=== PATIENT | male | born 1970 | race Caucasian/White ===

== ENCOUNTER 2016-12-07 07:16 | Day surgery (SDC) | payer SELFPAY ==
[2016-12-07] MEDS ORDERED: Lactated Ringers 1,000 ML IV SCH (08:00)
--- NOTE | 2016-12-07 08:28 | PCM.SN ---
- Free Text/Narrative Note: addendum to H+P: Pt has a small umbilical hernia that we will fix at the time of his lap cholecystectomy. No new sig risks of procedure.
[2016-12-07] MEDS ORDERED: cefOXitin 2 GM in Sodium Chloride 0.9% 100 ML IV ONE (08:30)
[2016-12-07] MEDS ORDERED: fentaNYL 100 MCG/2 ML SDV IV ONE (09:30)
[2016-12-07] MEDS ORDERED: Dexamethasone 4 MG/ML 5 ML MDV IVPUSH ONE (09:30)
[2016-12-07] MEDS ORDERED: Lidocaine 2% 100 MG/5 ML Syringe IVPUSH ONE (09:30)
[2016-12-07] MEDS ORDERED: Ondansetron 4 MG/2 ML SDV IVPUSH ONE (09:30)
[2016-12-07] MEDS ORDERED: HYDROmorphone 2 MG/ML SDV IV ONE (09:30)
[2016-12-07] MEDS ORDERED: Propofol 200 MG/20 ML SDV IV ONE (09:30)
[2016-12-07] MEDS ORDERED: Rocuronium 100 MG/10 ML MDV IV ONE (09:30)
[2016-12-07] MEDS ORDERED: Midazolam 1 MG/ML 2 ML SDV IV ONE (09:30)
[2016-12-07] MEDS ORDERED: Neostigmine Methylsulfate 1 MG/ML 5 ML Syringe IV ONE (09:30)
[2016-12-07] MEDS ORDERED: Bupivacaine 0.5% 30 ML SDV ONE (09:43)
[2016-12-07] MEDS ORDERED: Lidocaine 1% with EPINEPHrine 1:100,000 20 ML MDV ONE (09:43)
--- NOTE | 2016-12-07 10:19 | PCM.OPNOTE ---
- General Post-Op/Procedure Note Date of Surgery/Procedure: 12/07/16 Operative Procedure(s): lap cholecystectomy. umbilical hernia repair Findings: gall bladder and contents critical view obtained small 1 cm umbilical hernia Pre Op Diagnosis: sx gallstones and umbilical hernia Post-Op Diagnosis: Same Anesthesia Technique: General ET tube, Local (10 ml 1% lido with epi/0.5% marcaine) Primary Surgeon: Benja Wood Anesthesia Provider: Medina Santos Pathology: gallbladder and contents. Complications: None Condition: Good Free Text/Narrative:: see dictation
[2016-12-07] MEDS ORDERED: Morphine 2 MG/ML Syringe IVPUSH ONE (10:44)
--- NOTE | 2016-12-07 11:09 | OR ---
DATE OF OPERATION: 12/07/2016 SURGEON: Benja Wood MD PROCEDURE PERFORMED: Laparoscopic cholecystectomy. PREOPERATIVE DIAGNOSIS: Symptomatic cholelithiasis. POSTOPERATIVE DIAGNOSIS: Symptomatic cholelithiasis. INDICATIONS FOR PROCEDURE: This is a 45-year-old white male, who is referred with a history of intermittent right upper quadrant abdominal pain. This has been quite persistent. This has been going on for 6 months. Examination revealed a gallbladder sludge, slightly dilated common bile duct at 5.7 mm; however, his bilirubin was normal as well as his alkaline phosphatase. On the basis of this, he was offered and accepted the laparoscopic cholecystectomy. INTRAOPERATIVE FINDINGS: As follows: 10 mL of 1:1 mixture of 1% lidocaine with epinephrine 0.5% bupivacaine was used. The patient also had a small umbilical hernia that was repaired on closure of the umbilical port, and in addition, critical view was obtained. DESCRIPTION OF OPERATION: After an excellent general anesthetic was administered, the patient was prepped and draped in the usual sterile manner. Local was used to infiltrate around the area of the umbilicus, and a curvilinear incision was made. Blunt dissection was carried out exposing the midline fascia. Two stay sutures were placed on either side of the midline fascia. The midline was then incised. The abdominal cavity was entered. A 10.5 mm [place] trocar was then inserted in the patient's abdomen, which was then insufflated to 15 mmHg using carbon dioxide. The patient was placed in a reverse Trendelenburg position with an airplane to the left. Three 5 mm ports were placed, 1 in midline epigastrium and 2 below the right costal margin at the approximate level of the midclavicular and anterior axillary line. This was done by infiltrating full thickness of the abdominal wall with local anesthetic, making stab incisions and inserting our trocars. The gallbladder was grasped, retracted in a cephalad fashion. Adhesions were taken down using careful blunt dissection. The infundibulum was then grasped as well. It should be noted that the gallbladder appeared to be distended at the start of our dissection. Attempts to aspirate bile were not successful due to the nature of bile. After grasping the infundibulum, cystic duct and cystic artery were dissected free and after obtaining our clinical 270-degree view, two clips were placed proximally on the cystic duct and one distally. This was then transected. The process was repeated for the cystic artery with 2 clips proximal and 1 distal, which was then transected as well. L-hook cautery dissection was used to dissect the gallbladder free from the gallbladder fossa. The specimen was then delivered into the specimen bag and delivered out through the umbilical port. We did have to extend our fascial incision out and through the hernia, which was done easily allowing delivery of the gallbladder. The area was irrigated. Bleeding was controlled with electrocautery. There was some slight oozing in the area as well, not marked, but I did pack a piece of Surgicel into the gallbladder fossa as well. After assuring excellent hemostasis, the trocars were removed under direct visualization. The 5 mm ports were closed with maura. Down at the level of the umbilicus, we dissected through the umbilical hernia, mobilizing and freeing up rather the umbilicus. The defect was then closed with a running 0 Ethibond; 0 Vicryl was used to tack the umbilicus to the anterior abdominal wall. The 2 stay sutures were also tied to each other, and then the skin was closed with maura. Dressing was applied. Needle, sponge, and instrument counts were reported as correct. The patient was taken to recovery room in good condition. /[id number] MARCELO/RC
[2016-12-07] MEDS ORDERED: Acetaminophen/HYDROcodone 325-5 MG Tab PO PRN (11:34)
[2016-12-07 14:08] VITALS: BP 126/68
== END 2016-12-07 13:14 | disposition home or self-care (01) ==
LOC: FB.SDS 07:16
PROVIDERS: ATTEND Surgery
PROC: 0FT44ZZ Resection of Gallbladder, Percutaneous Endoscopic Approach (ICD-10-PCS; principal; 2016-12-07)
DX: K80.12 Calculus of gallbladder with acute and chronic cholecystitis without obstruction (principal); F17.200 Nicotine dependence, unspecified, uncomplicated; Z79.899 Other long term (current) drug therapy
CPT/HCPCS: 00790; 47562; 88304; A9270; J0131; J0694; J1100; J1170; J2250; J2270; J2405; J2704; J3010; J7030; J7120

== ENCOUNTER 2023-02-23 17:05 | Emergency (ER) | payer MEDICAID ==
[2023-02-23 17:17] VITALS: BP 150/99; PULSE 77
[2023-02-23] MEDS ORDERED: methylPREDNISolone Sodium Succinate 125 MG/2 ML SDV IM ONE (17:25)
[2023-02-23] MEDS ORDERED: Albuterol/Ipratropium 3.0-0.5 MG/3 ML Neb Soln NEB ONE (17:25)
== END 2023-02-23 17:56 | disposition home or self-care (01) ==
LOC: FB.ED 17:05
DX: J44.1 Chronic obstructive pulmonary disease with (acute) exacerbation (principal); F17.210 Nicotine dependence, cigarettes, uncomplicated
CPT/HCPCS: 71045; 94640; 96372; 99284; J2930; J7620